=== PATIENT | female | born 1960 | race Caucasian/White ===

== ENCOUNTER 2023-04-06 12:45 | Emergency (ER) | payer BC ==
[~2023-04-06] VITALS: Ht 154.9 cm; Wt 68.0 kg
[2023-04-06 12:47] VITALS: BP_SYST 119; PULSE 64; RESP 18; TEMP 98.1; O2SAT 100
[2023-04-06 13:43] LABS: BASOPHILS % (AUTO) 0.5 % (0.0-2.0); EOSINOPHILS # (AUTO) 0.3 K/uL (0.0-0.4); EOSINOPHILS % (AUTO) 4.2 % (0.0-4.0); HEMATOCRIT 40.5 % (36-48); HEMOGLOBIN 13.3 g/dL (12.0-16.0); LYMPHOCYTES # (AUTO) 2.4 K/uL (1.0-5.5); MEAN CORPUSCULAR HEMOGLOBIN 29 pg (27-31); MEAN CORPUSCULAR HGB CONC 33 % (32-36); MEAN CORPUSCULAR VOLUME 89 fL (79.0-98.0); MONOCYTES # (AUTO) 0.4 K/uL (0.0-1.0); MONOCYTES % (AUTO) 5.1 % (1.7-9.3); NEUTROPHILS # (AUTO) 4.1 K/uL (1.8-7.7); NEUTROPHILS % (AUTO) 57.2 % (40.0-70.0); PLATELET COUNT (AUTO) 347 K/uL (130-430); RED BLOOD CELL COUNT(AUTO) 4.55 MIL/uL (4.2-6.2); RED CELL DISTRIBUTION WIDTH 15.3 % (9.0-15.0); WHITE BLOOD COUNT (AUTO) 7.1 K/uL (4.8-10.8)
[2023-04-06 14:01] LABS: BILIRUBIN,URINE NEGATIVE (NEGATIVE); BLOOD, URINE NEGATIVE (NEGATIVE); COLOR,URINE YELLOW (YELLOW); GLUCOSE,URINE NEGATIVE (NEGATIVE); NITRITE, URINE NEGATIVE (NEGATIVE); PROTEIN URINE NEGATIVE (NEGATIVE); UROBILINOGEN,URINE 0.2 (0.2-1.0)
[2023-04-06 14:03] LABS: CLARITY/URINE CLEAR (CLEAR); KETONES,URINE NEGATIVE (NEGATIVE); LEUKOCYTE ESTERASE ,URINE TRACE (NEGATIVE)
[2023-04-06 14:07] LABS: ACETONE, SERUM NEGATIVE (NEGATIVE)
[2023-04-06 14:15] LABS: PROTHROMBIN TIME 9.9 SECS (9.5-12.5)
[2023-04-06 14:17] LABS: BACTERIA,URINE None Seen /HPF (None Seen); RBC,URINE 0-3 /HPF (0-3)
[2023-04-06 14:19] LABS: ANION GAP 13 (5-15); CALCIUM 9.2 mg/dL (8.4-11.0); CARBON DIOXIDE 25 mmol/L (23-29); CHLORIDE 104 mmol/L (98-107); GLUCOSE 96 mg/dL (74-106); POTASSIUM 4.2 mmol/L (3.5-5.1); SODIUM SERUM 142 mmol/L (136-145); UREA NITROGEN, BLOOD 17 mg/dL (8-21)
[2023-04-06 14:20] LABS: ALANINE AMINOTRANSFERASE 54 U/L (12-78); ALBUMIN 3.8 g/dL (3.4-4.8); ASPARTATE AMINOTRANSFERASE 29 U/L (10-37); CREATININE 0.94 mg/dL (0.55-1.30); GFR AFRICAN AMERICAN 78 mL/min (>90); GFR NON AFRICAN-AMERICAN 64 mL/min (>90); TOTAL BILIRUBIN 0.5 mg/dL (0.0-1.0); TOTAL PROTEIN, SERUM 7.4 g/dL (6.4-8.3)
[2023-04-06 14:21] LABS: FREE T4 (FREE THYROXINE) 0.6 ng/dL (0.6-1.6); THYROID STIMULATING HORMONE 1.56 uIu/mL (0.34-4.82)
[2023-04-06 14:32] LABS: CREATINE KINASE, TOTAL 133 U/L (26-192)
[2023-04-06] MEDS ORDERED: NACL 0.9% 1,000 ML IV ONE (15:30)
[2023-04-06] MEDS ORDERED: MECLIZINE HCL 25 MG TABLET (ANITVERT) PO ONE (15:30)
[2023-04-06 16:08] VITALS: BP_SYST 131; PULSE 56; RESP 18; TEMP 98.1; O2SAT 96
[2023-04-06] MEDS ORDERED: MECL-225 PO (16:12)
== END 2023-04-06 16:10 | disposition home or self-care (01) ==
LOC: SED 12:45
DX: R42 Dizziness and giddiness (principal); R51.9 Headache, unspecified; R53.1 Weakness; E11.9 Type 2 diabetes mellitus without complications; Z79.899 Other long term (current) drug therapy
CPT/HCPCS: 99285; 70450; 71045; 80053; 81000; 82009; 82550; 84439; 84443; 85025; 85610; 85730; 84484; 36415; 93005; 76376; 83605; J8597

== ENCOUNTER 2023-04-11 10:29 | Emergency (ER) | payer BC ==
[~2023-04-11] VITALS: Ht 154.9 cm; Wt 68.0 kg
[~2023-04-11 10:29] MED LIST: MECL-225 PO
[2023-04-11 10:37] VITALS: BP_SYST 128; PULSE 54; RESP 18; TEMP 97.8; O2SAT 97
== END 2023-04-11 11:14 | disposition home or self-care (01) ==
LOC: SED 10:29
DX: M70.21 Olecranon bursitis, right elbow (principal); E11.9 Type 2 diabetes mellitus without complications; Z79.899 Other long term (current) drug therapy; Y93.89 Activity, other specified
CPT/HCPCS: 99284

== ENCOUNTER 2023-04-17 20:02 | Emergency (ER) | payer BC ==
[~2023-04-17] VITALS: Ht 154.9 cm; Wt 72.6 kg
[2023-04-17 20:07] VITALS: BP_SYST 128; PULSE 69; RESP 18; TEMP 97.8; O2SAT 95
[2023-04-17] MEDS ORDERED: LIDOCAINE 1%, 20 ML MDV 20 ML ONE (20:28)
[2023-04-17] MEDS ORDERED: LIDOCAINE 1% 10 MG/ML, 20 ML MDV INJ ONE (20:30)
[2023-04-17] MEDS ORDERED: DOXY100C5 PO (20:55)
[2023-04-17 21:14] VITALS: BP_SYST 125; PULSE 72; RESP 16; TEMP 97.8; O2SAT 99
== END 2023-04-17 21:10 | disposition home or self-care (01) ==
LOC: SED 20:02
DX: M70.21 Olecranon bursitis, right elbow (principal); E11.9 Type 2 diabetes mellitus without complications; Z79.899 Other long term (current) drug therapy; Y93.89 Activity, other specified
CPT/HCPCS: 20605; 99283; J2001

== ENCOUNTER 2024-02-10 11:58 | Emergency (ER) | payer BC ==
[~2024-02-10] VITALS: Ht 154.9 cm; Wt 72.6 kg
[~2024-02-10 11:58] MED LIST changes: +DOXY100C5 PO
[2024-02-10 12:05] VITALS: BP_SYST 125; PULSE 78; RESP 16; TEMP 97.9; O2SAT 95
[2024-02-10] MEDS ORDERED: DICL50TA9 PO (12:21)
[2024-02-10] MEDS: KETOROLAC TROMETHAMINE 30 MG VIAL IM ONE (12:27)
== END 2024-02-10 12:36 | disposition home or self-care (01) ==
LOC: SED 11:58
DX: S43.421A Sprain of right rotator cuff capsule, initial encounter (principal); E11.9 Type 2 diabetes mellitus without complications; E51.2 Wernicke's encephalopathy; Z79.899 Other long term (current) drug therapy; Z79.2 Long term (current) use of antibiotics; X50.0XXA Overexertion from strenuous movement or load, initial encounter; Y93.89 Activity, other specified; Y92.89 Other specified places as the place of occurrence of the external cause; Y99.8 Other external cause status
CPT/HCPCS: 99283; 96372; J1885